=== PATIENT | female | born 1975 | race Caucasian/White ===

== ENCOUNTER 2018-02-15 08:39 | Emergency (ER) | payer OTHER ==
[~2018-02-15] VITALS: Ht 167.6 cm; Wt 113.4 kg
[~2018-02-15 08:39] MED LIST: ANAPROX DS550 MG PO; B12,B-12,B 12500 MC1 PO; BIAXIN500 MG PO; BIRTH CONTROL; CIPRODEX 0.3%-7.5 ML OT; CLARITIN10 MG PO; CYCLOBENZAPRINE10 MG PO; CYMBALTA60 MG PO; LISINOPRIL10 M1 PO; LISINOPRIL20 MG PO; MOTRIN800 MG PO; NORCO 5-325 TA1 EACH PO; NORMODYNE,TRAN200 MG PO; SEASONIQUE1 TAB PO; SYNTHROID300 MCG PO; VIBRA-TAB100 MG PO; ZANTAC 150150 MG PO; ZITHROMAX Z PA250 MG PO; ZOFRAN4 MG PO
[2018-02-15] MEDS ORDERED: LISINOPRIL-HCT1 EACH PO (08:49)
[2018-02-15 08:52] VITALS: BP 119/74
[2018-02-15] MEDS ORDERED: TIZANIDINE HCL4 MG PO (09:01)
[2018-02-15] MEDS ORDERED: Motrin,Rufen800 MG PO (09:38)
== END 2018-02-15 09:49 | disposition home or self-care (01) ==
LOC: ED 08:39
DX: S63.8X1A Sprain of other part of right wrist and hand, initial encounter (principal); I10 Essential (primary) hypertension; E03.9 Hypothyroidism, unspecified; Z98.890 Other specified postprocedural states; Z90.49 Acquired absence of other specified parts of digestive tract; Z79.899 Other long term (current) drug therapy; Z88.0 Allergy status to penicillin; X50.1XXA Overexertion from prolonged static or awkward postures, initial encounter; Y93.89 Activity, other specified; Y92.69 Other specified industrial and construction area as the place of occurrence of the external cause; Y99.9 Unspecified external cause status

== ENCOUNTER → 2020-10-17 | Outpatient (CLI) | payer OTHER ==
[~2020-10-17] MED LIST changes: +CYMBALTA30 MG PO; -CYMBALTA60 MG PO; +DECADRON6 M1 PO; +DEXAMETHASONE6 MG PO; +GLUCOPHAGE500 M1 PO; +JAIMIESS 0.15-1 EACH PO; +LISINOPRIL-HCT1 EACH PO; +LOPRESSOR25 MG PO; +MUCINEX1200 M1 PO; +Motrin,Rufen800 MG PO; +PEPCID40 MG PO; +PREDNISONE10 MG PO; +PROVENTIL HFA6.7 GM INH; +SYNTHROID,LEV175 MCG PO; +TESSALON PERLE100 MG PO; +TIZANIDINE HCL4 MG PO; +TRAZODONE50 MG PO; +VITAMIN B122500 MCG PO; +VITAMIN D3250 MC1 PO; +XARE20MG PO; +ZANAFLEX4 M2 PO
== END | disposition home or self-care (01) ==
LOC: COVID19 10:28
PROVIDERS: ATTEND Nurse Practitioner Family
DX: U07.1 COVID-19 (principal); R05 Cough

== ENCOUNTER 2020-10-24 16:03 | Emergency (ER) | payer OTHER ==
[~2020-10-24 16:03] MED LIST changes: -DECADRON6 M1 PO; -DEXAMETHASONE6 MG PO; -GLUCOPHAGE500 M1 PO; -JAIMIESS 0.15-1 EACH PO; -LOPRESSOR25 MG PO; -MUCINEX1200 M1 PO; -PEPCID40 MG PO; -PREDNISONE10 MG PO; -PROVENTIL HFA6.7 GM INH; -SYNTHROID,LEV175 MCG PO; -TESSALON PERLE100 MG PO; -TRAZODONE50 MG PO; -VITAMIN B122500 MCG PO; -VITAMIN D3250 MC1 PO; -XARE20MG PO; -ZANAFLEX4 M2 PO
[2020-10-24 16:58] LABS: BASO % 0.5 % (0.0-1.0); EOS # 0.1 10*3/uL (0.0-0.4); EOS % 1.4 % (1.0-4.0); HEMATOCRIT 40.4 % (37.0-47.0); LYMPH # 2.3 10*3/uL (1.3-4.4); LYMPH % 27.5 % (27.0-41.0); MEAN CELL VOLUME 87.6 fl (81.0-99.0); MEAN CORPUSCULAR HGB 28.4 pg (27.0-31.0); MEAN CORPUSCULAR HGB CONC 32.4 g/dl (33.0-37.0); MEAN PLATELET VOLUME 9.9 fl (9.6-12.3); MONO # 0.4 10*3/uL (0.1-1.0); NEUT # 5.5 10*3/uL (2.3-7.9); NEUT % 65.2 % (47.0-73.0); PLATELET COUNT AUTOMATED 406 10*3/uL (130-400); RED BLOOD COUNT 4.61 10*6/uL (4.10-5.10); RED CELL DISTRI WIDTH 13.8 % (0-14.5); WHITE BLOOD COUNT 8.4 10*3/uL (4.8-10.8)
[2020-10-24 17:15] LABS: ALBUMIN 3.4 gm/dl (3.1-4.5); ALKALINE PHOSPHATASE 104 U/L (45-117); BUN 13 mg/dl (7-24); CHLORIDE 108 mmol/L (98-107); CPK 34 U/L (26-192); CREATININE 1.14 mg/dL (0.55-1.02); LDH 179 U/L (84-246); POTASSIUM 3.4 mmol/L (3.5-5.1); SGOT/AST 17 IU/L (3-35); SGPT/ALT 16 U/L (12-78); SODIUM 140 mmol/L (136-145); TOTAL PROTEIN 7.6 gm/dL (6.4-8.2)
[2020-10-24 17:25] LABS: TROPONIN I < 0.015 ng/ml (<0.045)
[2020-10-24 17:42] LABS: ACT PARTIAL THROMBO TIME 26.4 SECONDS (20.0-32.1); INTERNATIONAL NORM RATIO 0.9 (2.0-3.5)
[2020-10-24 18:49] LABS: BILIRUBIN Negative (Negative); BLOOD Trace-Intact (Negative); CLARITY Cloudy (Clear); COLOR Yellow (Yellow); GLUCOSE Negative (Negative); KETONE Trace (Negative); LEUKO ESTERASE Trace (Negative); NITRITE Negative (Negative); SPECIFIC GRAVITY 1.025 (1.001-1.030); UROBILINOGEN 0.2 E.U./dl (0.0-1.0)
[2020-10-24 19:08] LABS: BACTERIA 1+; MUCOUS TRACE
[2020-10-24 19:38] VITALS: BP 118/76
[2020-10-24] MEDS ORDERED: TESSALON PERLE100 MG PO ×2 (19:56)
[2020-10-24] MEDS ORDERED: DEXAMETHASONE6 MG PO (19:56)
[2020-10-25] MEDS ORDERED: SYNTHROID,LEV175 MCG PO (12:30)
[2020-10-25] MEDS ORDERED: CLARITIN10 MG PO (12:32)
[2020-10-25] MEDS ORDERED: VITAMIN B122500 MCG PO (12:32)
[2020-10-25] MEDS ORDERED: PEPCID40 MG PO (12:33)
[2020-10-25] MEDS ORDERED: ZANAFLEX4 M2 PO (12:34)
[2020-10-25] MEDS ORDERED: VITAMIN D3250 MC1 PO (12:37)
[2020-10-25] MEDS ORDERED: GLUCOPHAGE500 M1 PO (12:39)
== END 2020-10-24 21:32 | disposition home or self-care (01) ==
LOC: ED 16:03
PROVIDERS: Emergency Medicine
DX: U07.1 COVID-19 (principal); I10 Essential (primary) hypertension; E03.9 Hypothyroidism, unspecified; Z88.0 Allergy status to penicillin; Z79.899 Other long term (current) drug therapy

== ENCOUNTER 2020-10-25 10:47 | Inpatient (IN) | payer OTHER ==
[~2020-10-25] VITALS: Ht 175.2 cm; Wt 108.0 kg
[~2020-10-25 10:47] MED LIST changes: +DEXAMETHASONE6 MG PO; +TESSALON PERLE100 MG PO
[2020-10-25 11:59] LABS: BASO % 0.2 % (0.0-1.0); HEMATOCRIT 40.7 % (37.0-47.0); LYMPH # 1.7 10*3/uL (1.3-4.4); LYMPH % 17.1 % (27.0-41.0); MEAN CELL VOLUME 87.9 fl (81.0-99.0); MEAN CORPUSCULAR HGB 27.9 pg (27.0-31.0); MEAN CORPUSCULAR HGB CONC 31.7 g/dl (33.0-37.0); MEAN PLATELET VOLUME 9.8 fl (9.6-12.3); MONO # 0.6 10*3/uL (0.1-1.0); MONO % 6.4 % (3.0-9.0); NEUT # 7.5 10*3/uL (2.3-7.9); NEUT % 75.8 % (47.0-73.0); PLATELET COUNT AUTOMATED 428 10*3/uL (130-400); RED BLOOD COUNT 4.63 10*6/uL (4.10-5.10); RED CELL DISTRI WIDTH 13.6 % (0-14.5); WHITE BLOOD COUNT 9.9 10*3/uL (4.8-10.8)
[2020-10-25 12:00] VITALS: BP 140/98
[2020-10-25 12:17] LABS: ALBUMIN 3.5 gm/dl (3.1-4.5); CREATININE 1.27 mg/dL (0.55-1.02); POTASSIUM 3.5 mmol/L (3.5-5.1); TOTAL PROTEIN 7.9 gm/dL (6.4-8.2)
[2020-10-25] MEDS ORDERED: SYNTHROID,LEV175 MCG PO (12:30)
[2020-10-25] MEDS ORDERED: CLARITIN10 MG PO (12:32)
[2020-10-25] MEDS ORDERED: VITAMIN B122500 MCG PO (12:32)
[2020-10-25] MEDS ORDERED: PEPCID40 MG PO (12:33)
[2020-10-25] MEDS ORDERED: ZANAFLEX4 M2 PO (12:34)
[2020-10-25] MEDS ORDERED: VITAMIN D3250 MC1 PO (12:37)
[2020-10-25] MEDS ORDERED: GLUCOPHAGE500 M1 PO (12:39)
[2020-10-25 16:00] VITALS: BP 122/64
[2020-10-25 21:03] VITALS: BP 135/74
[2020-10-26] VITALS: BP 100/56
[2020-10-26 06:33] LABS: BASO % 0.3 % (0.0-1.0); EOS # 0.1 10*3/uL (0.0-0.4); EOS % 0.7 % (1.0-4.0); LYMPH % 46.4 % (27.0-41.0); MEAN CELL VOLUME 89.3 fl (81.0-99.0); MEAN CORPUSCULAR HGB 27.7 pg (27.0-31.0); MEAN PLATELET VOLUME 9.5 fl (9.6-12.3); MONO # 0.5 10*3/uL (0.1-1.0); MONO % 5.8 % (3.0-9.0); NEUT % 46.5 % (47.0-73.0); PLATELET COUNT AUTOMATED 367 10*3/uL (130-400); RED BLOOD COUNT 4.48 10*6/uL (4.10-5.10); RED CELL DISTRI WIDTH 13.8 % (0-14.5); WHITE BLOOD COUNT 8.6 10*3/uL (4.8-10.8)
[2020-10-26 07:42] LABS: VITAMIN D, 25-HYDROXY 69.7 ng/mL (30-100)
[2020-10-26 08:00] VITALS: BP 126/54
[2020-10-26 09:30] LABS: ALBUMIN 3.3 gm/dl (3.1-4.5); CREATININE 1.24 mg/dL (0.55-1.02); POTASSIUM 3.3 mmol/L (3.5-5.1); TOTAL PROTEIN 7.4 gm/dL (6.4-8.2)
[2020-10-26 09:36] LABS: THYROID STIM HORMONE (HS) 7.51 uIU/ml (0.358-4.75)
[2020-10-26 12:00] VITALS: BP 131/61
[2020-10-26 16:00] VITALS: BP 121/61
[2020-10-26 20:00] VITALS: BP 126/99
[2020-10-27] VITALS: BP 89/51
[2020-10-27 06:28] LABS: BASO % 0.3 % (0.0-1.0); EOS % 0.2 % (1.0-4.0); HEMATOCRIT 39.7 % (37.0-47.0); LYMPH # 2.9 10*3/uL (1.3-4.4); MEAN CORPUSCULAR HGB 27.7 pg (27.0-31.0); MEAN CORPUSCULAR HGB CONC 31.5 g/dl (33.0-37.0); MEAN PLATELET VOLUME 9.6 fl (9.6-12.3); MONO # 0.6 10*3/uL (0.1-1.0); MONO % 6.3 % (3.0-9.0); NEUT # 6.3 10*3/uL (2.3-7.9); NEUT % 63.8 % (47.0-73.0); PLATELET COUNT AUTOMATED 374 10*3/uL (130-400); RED BLOOD COUNT 4.51 10*6/uL (4.10-5.10); RED CELL DISTRI WIDTH 13.6 % (0-14.5); WHITE BLOOD COUNT 9.9 10*3/uL (4.8-10.8)
[2020-10-27 06:57] LABS: ALBUMIN 3.3 gm/dl (3.1-4.5); ALKALINE PHOSPHATASE 87 U/L (45-117); BUN 15 mg/dl (7-24); CHLORIDE 105 mmol/L (98-107); CREATININE 1.09 mg/dL (0.55-1.02); POTASSIUM 3.8 mmol/L (3.5-5.1); SGOT/AST 20 IU/L (3-35); SGPT/ALT 19 U/L (12-78); SODIUM 139 mmol/L (136-145); TOTAL PROTEIN 7.4 gm/dL (6.4-8.2)
[2020-10-27 08:00] VITALS: BP 124/59
[2020-10-27 12:00] VITALS: BP 122/58
[2020-10-27 16:00] VITALS: BP 114/68
[2020-10-27 20:00] VITALS: BP 115/61
[2020-10-28 04:00] VITALS: BP 116/59
[2020-10-28 06:24] LABS: BASO % 0.2 % (0.0-1.0); EOS % 0.3 % (1.0-4.0); HEMATOCRIT 39.3 % (37.0-47.0); LYMPH # 3.9 10*3/uL (1.3-4.4); LYMPH % 37.2 % (27.0-41.0); MEAN CELL VOLUME 87.7 fl (81.0-99.0); MEAN CORPUSCULAR HGB 28.3 pg (27.0-31.0); MEAN CORPUSCULAR HGB CONC 32.3 g/dl (33.0-37.0); MEAN PLATELET VOLUME 9.7 fl (9.6-12.3); MONO # 0.7 10*3/uL (0.1-1.0); NEUT # 5.7 10*3/uL (2.3-7.9); NEUT % 54.9 % (47.0-73.0); PLATELET COUNT AUTOMATED 361 10*3/uL (130-400); RED BLOOD COUNT 4.48 10*6/uL (4.10-5.10); RED CELL DISTRI WIDTH 13.6 % (0-14.5); WHITE BLOOD COUNT 10.5 10*3/uL (4.8-10.8)
[2020-10-28 06:55] LABS: ALBUMIN 3.4 gm/dl (3.1-4.5); BUN 15 mg/dl (7-24); CHLORIDE 103 mmol/L (98-107); CREATININE 1.06 mg/dL (0.55-1.02); POTASSIUM 3.6 mmol/L (3.5-5.1); SGOT/AST 19 IU/L (3-35); SGPT/ALT 22 U/L (12-78); SODIUM 138 mmol/L (136-145); TOTAL PROTEIN 7.2 gm/dL (6.4-8.2)
[2020-10-28 06:56] LABS: ALKALINE PHOSPHATASE 82 U/L (45-117)
[2020-10-28 08:00] VITALS: BP 112/58
[2020-10-28] MEDS ORDERED: DECADRON6 M1 PO ×2 (13:01)
[2020-10-28] MEDS ORDERED: XARE20MG PO (13:16)
== END 2020-10-28 17:06 | disposition home or self-care (01) | DRG 177 ==
LOC: 4E 10:47
PROVIDERS: Internal Medicine; ADMIT Internal Medicine; ATTEND Internal Medicine
DX: U07.1 COVID-19 (principal); N17.0 Acute kidney failure with tubular necrosis; J96.01 Acute respiratory failure with hypoxia; J12.89 Other viral pneumonia; E87.2 Acidosis; D68.59 Other primary thrombophilia; D47.3 Essential (hemorrhagic) thrombocythemia; E05.00 Thyrotoxicosis with diffuse goiter without thyrotoxic crisis or storm; E03.9 Hypothyroidism, unspecified; E28.2 Polycystic ovarian syndrome; I10 Essential (primary) hypertension; Z90.49 Acquired absence of other specified parts of digestive tract; Z83.3 Family history of diabetes mellitus; Z82.49 Family history of ischemic heart disease and other diseases of the circulatory system; Z82.3 Family history of stroke; Z88.0 Allergy status to penicillin; E83.41 Hypermagnesemia; E66.9 Obesity, unspecified; E87.6 Hypokalemia; Z68.35 Body mass index [BMI] 35.0-35.9, adult

== ENCOUNTER → 2020-11-11 | Outpatient (CLI) | payer OTHER ==
[~2020-11-11] MED LIST changes: +DECADRON6 M1 PO; +GLUCOPHAGE500 M1 PO; +JAIMIESS 0.15-1 EACH PO; +LOPRESSOR25 MG PO; +MUCINEX1200 M1 PO; +PEPCID40 MG PO; +PREDNISONE10 MG PO; +PROVENTIL HFA6.7 GM INH; +SYNTHROID,LEV175 MCG PO; +TRAZODONE50 MG PO; +VITAMIN B122500 MCG PO; +VITAMIN D3250 MC1 PO; +XARE20MG PO; +ZANAFLEX4 M2 PO
== END | disposition home or self-care (01) ==
LOC: RAD 15:01
PROVIDERS: ATTEND Internal Medicine Critical Care Medicine
DX: R05 Cough (principal); R06.02 Shortness of breath

== ENCOUNTER 2020-11-19 18:49 | Observation (INO) | payer OTHER ==
[~2020-11-19] VITALS: Ht 167.6 cm; Wt 113.1 kg
[~2020-11-19 18:49] MED LIST changes: -JAIMIESS 0.15-1 EACH PO; -LOPRESSOR25 MG PO; -MUCINEX1200 M1 PO; -PREDNISONE10 MG PO; -PROVENTIL HFA6.7 GM INH; -TRAZODONE50 MG PO
[2020-11-19 19:07] VITALS: BP 128/69
[2020-11-19 19:20] LABS: BASO % 0.2 % (0.0-1.0); EOS % 0.1 % (1.0-4.0); HEMATOCRIT 37.6 % (37.0-47.0); LYMPH # 1.3 10*3/uL (1.3-4.4); LYMPH % 12.2 % (27.0-41.0); MEAN CORPUSCULAR HGB 28.7 pg (27.0-31.0); MEAN CORPUSCULAR HGB CONC 31.9 g/dl (33.0-37.0); MEAN PLATELET VOLUME 9.4 fl (9.6-12.3); MONO # 0.3 10*3/uL (0.1-1.0); NEUT % 83.8 % (47.0-73.0); PLATELET COUNT AUTOMATED 371 10*3/uL (130-400); RED BLOOD COUNT 4.18 10*6/uL (4.10-5.10); RED CELL DISTRI WIDTH 15.1 % (0-14.5); WHITE BLOOD COUNT 10.7 10*3/uL (4.8-10.8)
[2020-11-19 19:32] LABS: ACT PARTIAL THROMBO TIME 28.5 SECONDS (20.0-32.1)
[2020-11-19 19:38] LABS: ALBUMIN 3.1 gm/dl (3.1-4.5); ALKALINE PHOSPHATASE 85 U/L (45-117); BUN 16 mg/dl (7-24); CHLORIDE 110 mmol/L (98-107); CREATININE 1.27 mg/dL (0.55-1.02); POTASSIUM 3.6 mmol/L (3.5-5.1); SGOT/AST 10 IU/L (3-35); SGPT/ALT 16 U/L (12-78); SODIUM 143 mmol/L (136-145); TOTAL PROTEIN 6.8 gm/dL (6.4-8.2)
[2020-11-19 19:39] LABS: TROPONIN I < 0.015 ng/ml (<0.045)
[2020-11-19 22:50] VITALS: BP 130/74
[2020-11-19 23:30] VITALS: BP 143/77
--- NOTE | 2020-11-19 23:30 | NUR ---
A 45, admitted to 5E, under the services of MADISYN June DO with a diagnosis of COVID-19, CHEST PAIN. Chief complaint is . Patient arrived via wheel chair from ER. Monitor applied. Initial assessment completed. Vital signs taken and recorded. MADISYN JUNE DO notified of admission to the 5E unit. Orders received. See assessment for past medical history, medications and allergies. Patient and/or family oriented to unit. [facility] visitation policy reviewed. Clothing/patient valuable form completed. FATEMEH ALVAREZ
[2020-11-20] MEDS ORDERED: PREDNISONE10 MG PO (02:00)
[2020-11-20] MEDS ORDERED: MUCINEX1200 M1 PO (02:01)
[2020-11-20] MEDS ORDERED: PROVENTIL HFA6.7 GM INH (02:02)
[2020-11-20] MEDS ORDERED: TRAZODONE50 MG PO (02:03)
[2020-11-20] MEDS ORDERED: JAIMIESS 0.15-1 EACH PO (02:04)
[2020-11-20 06:31] LABS: BASO % 0.2 % (0.0-1.0); EOS # 0.1 10*3/uL (0.0-0.4); EOS % 0.7 % (1.0-4.0); HEMATOCRIT 35.7 % (37.0-47.0); LYMPH # 4.5 10*3/uL (1.3-4.4); LYMPH % 34.9 % (27.0-41.0); MEAN CELL VOLUME 91.3 fl (81.0-99.0); MEAN CORPUSCULAR HGB 28.9 pg (27.0-31.0); MEAN CORPUSCULAR HGB CONC 31.7 g/dl (33.0-37.0); MEAN PLATELET VOLUME 9.4 fl (9.6-12.3); MONO # 0.6 10*3/uL (0.1-1.0); MONO % 4.7 % (3.0-9.0); NEUT # 7.6 10*3/uL (2.3-7.9); NEUT % 58.8 % (47.0-73.0); PLATELET COUNT AUTOMATED 322 10*3/uL (130-400); RED BLOOD COUNT 3.91 10*6/uL (4.10-5.10); RED CELL DISTRI WIDTH 15.3 % (0-14.5); WHITE BLOOD COUNT 12.9 10*3/uL (4.8-10.8)
--- NOTE | 2020-11-20 06:35 | NUR ---
CALLED DR. BELL ANSWERING SERVICE AND NOTIFIED THEM OF CONSULT.
[2020-11-20 06:56] LABS: BUN 14 mg/dl (7-24); CHLORIDE 109 mmol/L (98-107); CREATININE 1.01 mg/dL (0.55-1.02); SODIUM 142 mmol/L (136-145)
[2020-11-20 06:57] LABS: POTASSIUM 3.8 mmol/L (3.5-5.1)
[2020-11-20 08:00] VITALS: BP 110/57
--- NOTE | 2020-11-20 08:00 | NUR ---
Patient resting quietly with no c/o discomfort. Respirations easy and regular. Vital signs stable. No overt distress. BAY ANDREW R
--- NOTE | 2020-11-20 11:05 | NUR ---
OFF UNIT TO CT
--- NOTE | 2020-11-20 11:45 | NUR ---
ECHO AT THIS TIME
[2020-11-20 12:00] VITALS: BP 140/74
--- NOTE | 2020-11-20 14:49 | NUR ---
Technology [employer] Architect in to talk to patient this A.M. in Room 522-1 Patient states that she Lives at Home with her There are Severl steps in the home. Physician: Dr. Nati Chen MD Pharmacy: [facility] health services: None Patient's level of ADLs: Independent, Still Works Patient has working utilities: Yes all are working DME: None Follow-up physician's appointment after d/c: Per Hospitalist Nurse Director Does patient want to access PORTAL?: Pt. is able to Access Discharge plan disscused with Patient. At this time Pt. will return home with her and Family. There are No Home needs at this time. SRINIVAS TO LPN
[2020-11-20 16:00] VITALS: BP 132/79
[2020-11-20 20:00] VITALS: BP 129/70
[2020-11-21] VITALS: BP 106/45
--- NOTE | 2020-11-21 04:01 | NUR ---
PATIENT NPO FOR STRESS TEST THIS AM.
--- NOTE | 2020-11-21 05:30 | NUR ---
24 HR chart check completed.
--- NOTE | 2020-11-21 06:50 | NUR ---
PATIENT SLEPT WELL. NO ACUTE DISTRESS NOTED.
[2020-11-21 08:00] VITALS: BP 128/70
--- NOTE | 2020-11-21 09:00 | NUR ---
patient will return home when discharged, no home needs, case management will follow
--- NOTE | 2020-11-21 10:08 | NUR ---
OFF UNIT FOR STRESS TEST
--- NOTE | 2020-11-21 10:55 | NUR ---
INFORMED CONSENT SIGNED FOR STRESS ECHO WITH DR. RUBY. RESTING EKG NSR, HR 71, BP 124/60. PULSE OX 99%. PT COMPLETED 6:30 OF A STANDARD MARIO PROTOCOL COMPLETING :30 STAGE III, 3.4 MPH/14% GRADE. PEAK HEART RATE OF 154 ACHEIVED WHICH IS 89% PREDICTED MAXIMUM AND A PEAK BP OF 166/92. TEST TERMINATED D/T FATIGUE. PT DID C/O SOME SOB. PULSE OX 94% IMMEDIATELY IN RECOVERY. NO ARRYTHMIAS OR ST CHANGES NOTED. SEE ECHO REPORT. HAS AN AVERAGE EXERCISE TOLERANCE. THIS IS A NEGATIVE STRESS ECHO. LAST RECOVERY HR 88, BP 132/60. RETURNED TO FLOOR IN STABLE CONDITION.
[2020-11-21 12:00] VITALS: BP 132/71
--- NOTE | 2020-11-21 13:40 | NUR ---
SPOKE WITH DR RUBY RE: CARDIAC MEDS. ORDERS RECEIVED.
[2020-11-21] MEDS ORDERED: LOPRESSOR25 MG PO (14:52)
--- NOTE | 2020-11-21 15:31 | NUR ---
Discharge instructions reviewed with patient/family. Patient receptive and verbalizes understanding. Follow-up care arranged. Written instructions given to patient/family. BAY ANDREW
== END 2020-11-21 15:31 | disposition home or self-care (01) ==
LOC: ED 18:49 → EDHOLD 21:01 → 5E 22:23
PROVIDERS: Emergency Medicine; Internal Medicine; ADMIT Student in an Organized Health Care Education/Training Program; ATTEND Student in an Organized Health Care Education/Training Program
DX: R07.89 Other chest pain (principal); N17.0 Acute kidney failure with tubular necrosis; D64.9 Anemia, unspecified; D72.829 Elevated white blood cell count, unspecified; E03.9 Hypothyroidism, unspecified; R73.9 Hyperglycemia, unspecified; E05.00 Thyrotoxicosis with diffuse goiter without thyrotoxic crisis or storm; E53.8 Deficiency of other specified B group vitamins; I10 Essential (primary) hypertension; E28.2 Polycystic ovarian syndrome

== ENCOUNTER 2021-11-18 12:07 | Emergency (ER) | payer OTHER ==
[~2021-11-18] VITALS: Ht 167.6 cm; Wt 113.4 kg
[~2021-11-18 12:07] MED LIST changes: +JAIMIESS 0.15-1 EACH PO; +LOPRESSOR25 MG PO; +MUCINEX1200 M1 PO; +PREDNISONE10 MG PO; +PROVENTIL HFA6.7 GM INH; +TRAZODONE50 MG PO
[2021-11-18 14:08] VITALS: BP 125/76
[2021-11-18] MEDS ORDERED: DECADRON6 M1 PO (14:44)
== END 2021-11-18 14:41 | disposition home or self-care (01) ==
LOC: ED 12:07
DX: U07.1 COVID-19 (principal); Z90.49 Acquired absence of other specified parts of digestive tract; Z79.899 Other long term (current) drug therapy; Z88.0 Allergy status to penicillin

== ENCOUNTER 2022-12-04 07:03 | Emergency (ER) | payer OTHER ==
[2022-12-04 08:45] VITALS: BP 116/67
[2022-12-04] MEDS ORDERED: PREDNISONE10 MG PO (09:17)
[2022-12-04] MEDS ORDERED: PERCOCET 5-3251 EACH PO (09:17)
[2022-12-04] MEDS ORDERED: CYCLOBENZAPRINE10 MG PO (09:17)
[2022-12-04] MEDS ORDERED: HYDROCODONE-AC1 EAC1 PO (09:41)
== END 2022-12-04 09:49 | disposition home or self-care (01) ==
LOC: ED 07:03
DX: M54.42 Lumbago with sciatica, left side (principal); Z88.0 Allergy status to penicillin; Z90.89 Acquired absence of other organs; Z98.890 Other specified postprocedural states; Z90.49 Acquired absence of other specified parts of digestive tract; F10.90 Alcohol use, unspecified, uncomplicated